=== PATIENT | male | born 1965 | race Caucasian/White ===

== ENCOUNTER 2016-08-28 08:45 | Emergency (ER) | payer BC, OTHER ==
[2016-08-28 09:07] VITALS: BP 134/80
--- NOTE | 2016-08-28 09:57 | UC ---
Abdominal Pain Male HPI - HPI Summary HPI Summary: SUDDEN ONSET OF INTERMITTENT SHARP LOWER ABDOMINAL PAIN. SOME NAUSEA WHEN EATING SINCE YESTERDAY. NO FEVER. FEELS BLOATED. NO URINARY SX. SX WORSE WHEN HE NEEDS TO DEFECATE AND THEN HE IS UNABLE TO GET MUCH OUT. HAS HAD APPENDECTOMY. NO BLOOD PER RECTUM. - History of Current Complaint Chief Complaint: UCAbdominalPain Stated Complaint: CONSTIPATION Time Seen by Provider: 08/28/16 09:24 Hx Obtained From: Patient Onset/Duration: Sudden Onset, Lasting Days, Still Present Timing: Intermittent Episodes Lasting: Severity Initially: Moderate Severity Currently: Moderate Pain Intensity: 3 Pain Scale Used: 0-10 Numeric Location: Suprapubic Radiates: No Character: Sharp Aggravating Factor(s):: Nothing Alleviating Factor(s): Spontaneous Resolution Associated Signs And Symptoms: Positive: Constipation, Decreased Appetite, Nausea. Negative: Fever, Vomiting, Diarrhea - Allergies/Home Medications Allergies/Adverse Reactions: Allergies Allergy/AdvReac Type Severity Reaction Status Date / Time Diphenhydramine Allergy Intermediate Agitation Verified 10/20/12 04:26 [From Benadryl] PMH/Surg Hx/FS Hx/Imm Hx Endocrine History Of: Denies: Diabetes Cardiovascular History Of: Denies: Hypertension, Pacemaker/ICD GI/ History Of: Reports: Gastroesophageal Reflux Denies: Renal Disease - Surgical History Surgical History: Yes Surgery Procedure, Year, and Place: APPENDECTOMY- as a child. TENDONS REPAIR - FROM INJURY - Lt HAND - Family History Known Family History: Positive: Cardiac Disease Negative: Blood Disorder Family History: COLITIS - MOM - Social History Alcohol Use: None Substance Use Type: None, Other Smoking Status (MU): Former Smoker Review of Systems Constitutional: Negative Respiratory: Negative Cardiovascular: Negative Gastrointestinal: Abdominal Pain, Other - NAUSEA Genitourinary: Negative All Other Systems Reviewed And Are Negative: Yes Physical Exam Triage Information Reviewed: Yes Appearance: Well-Appearing, No Pain Distress, Well-Nourished Vital Signs: Initial Vital Signs Temp 99.3 F 08/28/16 09:00 Pulse 81 08/28/16 09:00 Resp 18 08/28/16 09:00 BP 134/80 08/28/16 09:00 Pulse Ox 96 08/28/16 09:00 Vital Signs Reviewed: Yes Eyes: Positive: Conjunctiva Clear ENT: Positive: Hearing grossly normal Neck: Positive: Supple, Nontender, No Lymphadenopathy Respiratory Exam: Normal Cardiovascular Exam: Normal Abdomen Description: Positive: Soft, Distended, Other: - TTP SUPRAPUBIC, NO REBOUND OR RIGIDITY. SOME VOLUNTARY GUARDING. Negative: CVA Tenderness (R), CVA Tenderness (L) Bowel Sounds: Positive: Present Musculoskeletal: Positive: No Edema Neurological: Positive: Alert Psychological: Positive: Age Appropriate Behavior Skin: Negative: rashes Diagnostics - Radiology CT ABD/PELVIS W/O CONTRAST Xray Interpretation: Positive (See Comments) - FINDINGS SUGGESTIVE OF DIVERTICULITIS. POSSIBLE ABSCESS OFF SIGMOID COLON. Radiology Interpretation Completed By: Radiologist Abd Pain Male Course/Dx - Differential Dx/Clinical Impression Provider Diagnoses: DIVERTICULITIS, POSSIBLE ABSCESS - Physician Notification/Consults Discussed Patient Care With: DR. LYON Time Discussed With Above Provider: 11:00 - OFFICE TO CALL PT TO SCHEDULE APPT Instructed by Provider To: Other - DR. LYON WILL SEE PT IN OFFICE TOMORROW MORNING. Discharge - Discharge Plan Condition: Stable Disposition: HOME Prescriptions: Ciprofloxacin TAB* [Cipro Tab*] 500 mg PO BID #20 tab Metronidazole [Flagyl 500 MG TAB] 500 mg PO TID #30 tab Ondansetron ODT TAB* [Zofran Odt TAB*] 4 mg PO Q6H PRN #20 tab.odt PRN Reason: Nausea/Vomiting Patient Education Materials: Diverticulitis (ED), Diverticulitis Diet (ED) Referrals: Anand Lyon MD [Primary Care Provider] - Additional Instructions: DIVERTICULITIS AND POSSIBLE ABSCESS SEEN ON NON CONTRAST CT SCAN TODAY. DR LYON' S OFFICE WILL BE CALLING YOU TODAY TO SCHEDULE AN APPT WITH HIM TOMORROW MORNING. GO TO THE ER WITHOUT FAIL IF YOU DEVELOP WORSENING PAIN, FEVER, VOMITING, BLOOD PER RECTUM OR ANY OTHER CONCERNING SYMPTOMS.
--- NOTE | 2016-08-28 10:36 | RAD ---
INDICATION: Lower abdominal pain. COMPARISON: There are no prior studies available for comparison. TECHNIQUE: A CT scan of the abdomen and pelvis was performed without intravenous or oral contrast. Contiguous axial sections were obtained from the lung bases through the symphysis pubis. Images were reconstructed in the coronal and sagittal planes. FINDINGS: The lung bases are clear. No pleural effusion is present. The liver is mildly enlarged and decreased in attenuation consistent with fatty infiltration. The spleen is normal in size. There are multiple splenic calcifications most consistent with old granulomatous disease. No calcified gallstones are seen. The pancreas appears to be within normal limits. The adrenal glands and kidneys are normal in size. No renal calculi or hydronephrosis is seen. The aorta is normal in caliber with mild calcific plaque present. No significant enlarged retroperitoneal lymph nodes are seen. The stomach, small and large bowel appear nondistended. The patient is status post appendectomy. There is enlargement of the mid sigmoid colon with wall thickening and increased density. There is stranding in the adjacent mesenteric fat. There is also a more rounded area extending off the top of the sigmoid colon measuring 3.5 cm in diameter possibly representing an abscess although not well-defined on this noncontrast study. This has a low-density center. There is a trace amount of free intraperitoneal fluid seen in the pelvis. No free to peritoneal air is seen. No significant focal osseous abnormality is seen. IMPRESSION: 1. INCREASED SOFT TISSUE DENSITY IN THE SIGMOID COLON WITH WALL THICKENING AND STRANDING IN THE ADJACENT MESENTERIC FAT NONSPECIFIC ALTHOUGH SUGGESTIVE OF DIVERTICULITIS. THERE IS ALSO A ROUND AREA PRESENT ARISING FROM THE SUPERIOR ASPECT OF THE SIGMOID COLON POSSIBLY REPRESENTING AN ABSCESS. RECOMMEND COLONOSCOPY ONCE THE PATIENT'S ACUTE SYMPTOMS RESOLVE TO EXCLUDE AN UNDERLYING MALIGNANCY. 2. MILD HEPATOMEGALY AND HEPATIC STEATOSIS.
== END 2016-08-28 11:23 | disposition home or self-care (01) ==
LOC: UCEAST 08:45
DX: K57.32 Diverticulitis of large intestine without perforation or abscess without bleeding (principal); Z88.8 Allergy status to other drugs, medicaments and biological substances; Z87.891 Personal history of nicotine dependence
CPT/HCPCS: 74176; 81002; 87086; 99212; G0463

== ENCOUNTER 2017-03-31 12:53 | Emergency (ER) | payer SELFPAY ==
[2017-03-31 13:09] VITALS: BP 131/67
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
== END 2017-03-31 15:30 | disposition home or self-care (01) ==
LOC: UCEAST 12:53
DX: M25.511 Pain in right shoulder (principal); V49.49XA Driver injured in collision with other motor vehicles in traffic accident, initial encounter; Y92.410 Unspecified street and highway as the place of occurrence of the external cause; Y99.9 Unspecified external cause status
CPT/HCPCS: 99213; G0463

== ENCOUNTER 2018-10-27 12:28 | Emergency (ER) | payer BC, OTHER ==
[2018-10-27 13:44] VITALS: BP 117/78
--- NOTE | 2018-10-27 15:03 | UC ---
Bite Injury/Animal HPI - HPI Summary HPI Summary: 53-year-old male with a chief complaint of a tick bite in a rash. This morning he found a tick just below his umbilicus. He pulled off. Now he has erythema in the area and it continues to hurt. No fevers or chills feels well otherwise. Patient works outside a lot and has a lot of exposure to ticks. Is also interested in a hepatitis screen. He is not any hepatitis symptoms. - History of Current Complaint Chief Complaint: UCGeneralIllness Stated Complaint: TICK BITE Time Seen by Provider: 10/27/18 14:51 Pain Intensity: 0 - Allergies/Home Medications Allergies/Adverse Reactions: Allergies Allergy/AdvReac Type Severity Reaction Status Date / Time MS Diphenhydramine Allergy Intermediate Agitation Verified 10/27/18 13:37 [From Benadryl] PMH/Surg Hx/FS Hx/Imm Hx Previously Healthy: Yes - Surgical History Surgical History: Yes Surgery Procedure, Year, and Place: APPENDECTOMY- as a child. TENDONS REPAIR - FROM INJURY - Lt HAND - Family History Known Family History: Positive: None, Cardiac Disease Negative: Blood Disorder Family History: COLITIS - MOM - Social History Alcohol Use: None Substance Use Type: None Smoking Status (MU): Former Smoker - Immunization History Most Recent Tetanus Shot: UTD Review of Systems All Other Systems Reviewed And Are Negative: Yes Constitutional: Positive: Negative Skin: Positive: Rash Eyes: Positive: Negative ENT: Positive: Negative Respiratory: Positive: Negative Cardiovascular: Positive: Negative Gastrointestinal: Positive: Negative Motor: Positive: Negative Neurovascular: Positive: Negative Musculoskeletal: Positive: Negative Neurological: Positive: Negative Psychological: Positive: Negative Is Patient Immunocompromised?: No Physical Exam Triage Information Reviewed: Yes Appearance: Well-Appearing, No Pain Distress, Well-Nourished Vital Signs: Initial Vital Signs Temp 97.9 F 10/27/18 13:40 Pulse 70 10/27/18 13:40 Resp 17 10/27/18 13:40 BP 117/78 10/27/18 13:40 Pulse Ox 99 10/27/18 13:40 Vital Signs Reviewed: Yes Eye Exam: Normal Eyes: Positive: Conjunctiva Clear Neck: Positive: Supple Respiratory: Positive: Lungs clear, Normal breath sounds, No respiratory distress Cardiovascular: Positive: RRR Musculoskeletal Exam: Normal Musculoskeletal: Positive: Strength Intact, ROM Intact Neurological Exam: Normal Neurological: Positive: Alert, Muscle Tone Normal Psychological Exam: Normal Psychological: Positive: Age Appropriate Behavior Skin: Positive: Other - Just below the umbilicus there is a 3cm diameter area of skin erythema that is warm to the touch. Bite Injury Course/Dx - Course Course Of Treatment: The erythematous area around the tick bite site is concerning for a Lyme rash or cellulitis. We will treat with doxycycline 100 mg by mouth twice a day for 14 days. Patient is also negative hepatitis screen. Follow-up primary care reevaluate sooner if worse or any questions or concerns. - Differential Dx/Diagnosis Provider Diagnosis: Tick bite of abdomen, Cellulitis Discharge - Sign-Out/Discharge Documenting (check all that apply): Patient Departure All imaging exams completed and their final reports reviewed: No Studies - Discharge Plan Condition: Stable Disposition: HOME Prescriptions: DOXYcycline CAP(*) [DOXYcycline 100MG CAP(*)] 100 mg PO BID #28 cap Patient Education Materials: Cellulitis (ED), Tick Bite (ED) Referrals: Anand Lyon MD [Primary Care Provider] - Additional Instructions: FOLLOW UP WITH YOUR DOCTOR IF NOT COMPLETELY IMPROVED. GET REEVALUATED SOONER FOR ANY WORSENING OF YOUR CONDITION OR ANY QUESTIONS OR CONCERNS. - Billing Disposition and Condition Condition: STABLE Disposition: Home
[2018-10-28 11:55] LABS: Hepatitis B Surface Antigen Nonreactive (Nonreactive)
[2018-10-28 12:13] LABS: Hepatitis C Antibody Nonreactive (Nonreactive)
== END 2018-10-27 15:20 | disposition home or self-care (01) ==
LOC: UCEAST 12:28
DX: Z87.891 Personal history of nicotine dependence (principal); T63.481A Toxic effect of venom of other arthropod, accidental (unintentional), initial encounter; Y92.9 Unspecified place or not applicable; L03.311 Cellulitis of abdominal wall
CPT/HCPCS: 36415; 80074; 99212; G0463

== ENCOUNTER 2019-09-05 09:47 | Emergency (ER) | payer BC ==
[2019-09-05 10:37] LABS: ABS Basophils 0.1 10^3/ul (0-0.2); ABS Monocytes 1.1 10^3/ul (0-0.8); ABS Neutrophils 9.7 10^3/ul (1.5-7.7); Eosinophil % 0.4 %; Hematocrit 43 % (42-52); Hemoglobin 14.5 g/dL (14.0-18.0); Lymphocyte % 8.3 %; Mean Corpuscular HGB Conc 34 g/dL (31-36); Mean Corpuscular Hemoglobin 31 pg (27-31); Mean Corpuscular Volume 92 fL (80-94); Mean Platelet Volume 7.2 fL (7.4-10.4); Platelet Count 269 10^3/uL (150-450); Red Blood Count 4.67 10^6 /uL (4.18-5.48); Red Cell Distribution Width 13 % (10-15); White Blood Count 11.9 10^3/uL (3.5-10.8)
[2019-09-05 10:47] LABS: Albumin 4.2 g/dL (3.2-5.2); Calcium 9.4 mg/dL (8.6-10.3); Potassium 4.3 mmol/L (3.5-5.0); Total Bilirubin 0.7 mg/dL (0.2-1.0)
[2019-09-05 10:53] LABS: Albumin/Globulin Ratio 1.3 (1-3); BUN/Creatinine Ratio 11.3 (8-20); EGFR African American 97.2 (>60); EGFR Non-African American 80.4 (>60); Globulin 3.2 g/dL (2-4); Total Protein 7.4 g/dL (6.4-8.9)
--- NOTE | 2019-09-05 11:32 | ED ---
Abdominal Pain/Male - HPI Summary HPI Summary: 54 y/o male presented to [facility] complaining of lower abd pain worsened since yesterday. Pt had abd pain 2 weeks ago when he had the flu that improved after flu symptoms ended, and worsened yesterday. Pt denies diarrhea but endorses a fever of 101F. His last BM was this morning, but he is constipated and needed laxatives. He recently received a colonoscopy from Dr. Mejia. Medications reviewed. Pt notes hx of diverticulitis. Notes fhx of diverticulitis, colitis, and hernias in his mother as well as triple bypass and pancreatic cx in his father. - History of Current Complaint Chief Complaint: EDAbdPain Stated Complaint: ABD PAIN PER PT Time Seen by Provider: 09/05/19 10:24 Hx Obtained From: Patient Onset/Duration: Lasting Days, Still Present Timing: Lasting Days Severity Currently: Moderate Pain Intensity: 6 Pain Scale Used: 0-10 Numeric Location: Discrete At: RLQ, Discrete At: LLQ Aggravating Factor(s): Nothing Alleviating Factor(s): Nothing Associated Signs And Symptoms: Positive: Fever, Constipation. Negative: Diarrhea - Allergies/Home Medications Allergies/Adverse Reactions: Allergies Allergy/AdvReac Type Severity Reaction Status Date / Time diphenhydramine Allergy Tachycardia Verified 09/05/19 09:52 [From Benadryl] Home Medications: Home Medications Polyethylene Glycol 3350 [Miralax] 17 gm PO DAILY PRN 09/05/19 [History Confirmed 09/05/19] PMH/Surg Hx/FS Hx/Imm Hx Endocrine/Hematology History: Denies: Hx Diabetes, Hx Thyroid Disease Cardiovascular History: Denies: Hx Hypertension, Hx Pacemaker/ICD Respiratory History: Denies: Hx Asthma, Hx Chronic Obstructive Pulmonary Disease (COPD) GI History: Denies: Hx Ulcer History: Denies: Hx Renal Disease Sensory History: Denies: Hx Hearing Aid Neurological History: Denies: Hx Headaches, Other Neuro Impairments/Disorders Psychiatric History: Denies: Hx Panic Disorder - Surgical History Surgery Procedure, Year, and Place: APPENDECTOMY- as a child. TENDONS REPAIR - FROM INJURY - Lt HAND Infectious Disease History: No Infectious Disease History: Denies: Hx Hepatitis, Hx Human Immunodeficiency Virus (HIV), Traveled Outside the [place] in Last 30 Days - Family History Known Family History: Positive: Cardiac Disease Negative: Blood Disorder Family History: COLITIS - MOM - Social History Alcohol Use: None Substance Use Type: Reports: Marijuana Substance Use Comment - Amount & Last Used: last used a few weeks ago, states occasional use Smoking Status (MU): Former Smoker Review of Systems Positive: Fever - claimed before arrival Positive: Abdominal Pain, Other - constipation. Negative: Diarrhea All Other Systems Reviewed And Are Negative: Yes Physical Exam - Summary Physical Exam Summary: Constitutional: Well-developed, Well-nourished, Alert. (-) Distressed Skin: Warm, Dry HENT: Normocephalic; Atraumatic Eyes: Conjunctiva normal Neck: Musculoskeletal ROM normal neck. (-) JVD, (-) Stridor, (-) Nuchal rigidity Cardio: Rhythm regular, rate normal, Heart sounds normal; Intact distal pulses; Radial pulses are 2+ and symmetric. (-) Murmur Pulmonary/Chest wall: Effort normal. (-) Respiratory distress, (-) Wheezes, (-) Rales Abd: Soft, (-) Suprapubic bilat LQ tenderness, (-) Distension, (-) Guarding, (- ) Rebound Musculoskeletal: (-) Edema Lymph: (-) Cervical adenopathy Neuro: Alert, Oriented x3 Psych: Mood and affect Normal Triage Information Reviewed: Yes Vital Signs On Initial Exam: Initial Vitals Temp Pulse Resp BP Pulse Ox 99.5 F 95 19 155/87 100 09/05/19 09:49 09/05/19 09:49 09/05/19 09:49 09/05/19 09:49 09/05/19 09:49 Vital Signs Reviewed: Yes Procedures - Sedation Patient Received Moderate/Deep Sedation with Procedure: No Diagnostics - Vital Signs Vital Signs Temp Pulse Resp BP Pulse Ox 09/05/19 11:00 80 95 09/05/19 10:40 88 145/86 98 09/05/19 10:38 85 97 09/05/19 09:49 99.5 F 95 19 155/87 100 - Laboratory Lab Results: Lab Results 09/05/19 09/05/19 Range/Units 10:29 10:29 WBC 11.9 H (3.5-10.8) 10^3/uL RBC 4.67 (4.18-5.48) 10^6 /uL Hgb 14.5 (14.0-18.0) g/dL Hct 43 (42-52) % MCV 92 (80-94) fL MCH 31 (27-31) pg MCHC 34 (31-36) g/dL RDW 13 (10-15) % Plt Count 269 (150-450) 10^3/uL MPV 7.2 L (7.4-10.4) fL Neut % (Auto) 81.0 % Lymph % (Auto) 8.3 % Mcculloch % (Auto) 9.4 % Eos % (Auto) 0.4 % Baso % (Auto) 0.9 % Absolute Neuts (auto) 9.7 H (1.5-7.7) 10^3/ul Absolute Lymphs (auto) 1.0 (1.0-4.8) 10^3/ul Absolute Monos (auto) 1.1 H (0-0.8) 10^3/ul Absolute Eos (auto) 0.0 (0-0.6) 10^3/ul Absolute Basos (auto) 0.1 (0-0.2) 10^3/ul Absolute Nucleated RBC 0.0 10^3/ul Nucleated RBC % 0.0 Sodium 135 (135-145) mmol/L Potassium 4.3 (3.5-5.0) mmol/L Chloride 99 L (101-111) mmol/L Carbon Dioxide 30 (22-32) mmol/L Anion Gap 6 (2-11) mmol/L BUN 11 (6-24) mg/dL Creatinine 0.97 (0.67-1.17) mg/dL Est GFR ( Amer) 97.2 (>60) Est GFR (Non-Af Amer) 80.4 (>60) BUN/Creatinine Ratio 11.3 (8-20) Glucose 108 H (70-100) mg/dL Calcium 9.4 (8.6-10.3) mg/dL Total Bilirubin 0.70 (0.2-1.0) mg/dL AST 14 (13-39) U/L ALT 12 (7-52) U/L Alkaline Phosphatase 70 (34-104) U/L Total Protein 7.4 (6.4-8.9) g/dL Albumin 4.2 (3.2-5.2) g/dL Globulin 3.2 (2-4) g/dL Albumin/Globulin Ratio 1.3 (1-3) Lipase 14 (11.0-82.0) U/L Result Diagrams: 09/05/19 10:29 09/05/19 10:29 Lab Statement: Any lab studies that have been ordered have been reviewed, and results considered in the medical decision making process. - CT abd/pel CT Interpretation Completed By: Radiologist Summary of CT Findings: IMPRESSION: Findings consistent with diverticulitis of the sigmoid colon with no evidence. of peridiverticular abscess. Tiny microperforations may be present. The ED physician has reviewed this report. Re-Evaluation - Re-Evaluation First Eval Re-Evaluation Time: 14:40 Change: Improved - d/w patient finding of diverticulitis on CT, given augmentin. Has GI doctor for follow up Abdominal Pain Male Course/Dx - Course Course Of Treatment: 54-year-old male with a history of recent flulike symptoms presenting with lower abdominal pain consistent with prior diverticulitis. Physical exam well-appearing, mild lower abdominal tenderness. Urine without evidence of UTI. Will check CT abd and pelvis contrast, give IV fluids. Labs notable for mild leukocytosis. - Diagnoses Provider Diagnoses: Diverticulitis Discharge ED - Sign-Out/Discharge Documenting (check all that apply): Patient Departure - dc - Discharge Plan Condition: Stable Disposition: HOME Prescriptions: Amoxicillin/Clavulanate TAB* [Augmentin TAB 875*] 875 mg PO BID 10 Days #20 tab Patient Education Materials: Diverticulitis (ED) Referrals: Simon Tripathi, [place] [Primary Care Provider] - Harry Mariscal DO [Doctor of Osteopathy] - Additional Instructions: You were seen in the emergency department for dollar pain. Your CT scan showed diverticulitis Please take Augmentin twice a day for 10 days. If any studies were not completed at the time of discharge you will be called with the relevant results. Please follow up with your primary care doctor in the next 2-3 days and return to the emergency department for worsening pain, fevers, inability to eat or drink, or concerning symptoms. It was a pleasure taking care of you today. - Billing Disposition and Condition Condition: STABLE Disposition: Home - Attestation Statements Document Initiated by Scribe: Yes Documenting Scribe: Chester Garnica Provider For Whom Scribe is Documenting (Include Credential): Sandor Carmen Scribe Attestation: I, Chester Garnica, scribed for Sandor Reyesse on 09/05/19 at 2304. Scribe Documentation Reviewed: Yes Provider Attestation: The documentation as recorded by the scribeChester accurately reflects the service I personally performed and the decisions made by Sandor macias Status of Scribe Document: Viewed
[2019-09-05 12:34] LABS: Urine Appearance Clear; Urine Bilirubin Negative (Negative); Urine Blood Negative (Negative); Urine Color Colorless; Urine Glucose Negative (Negative); Urine Ketones Trace (Negative); Urine Nitrite Negative (Negative); Urine Protein Negative (Negative); Urine Specific Gravity 1.001 (1.010-1.030); Urine Urobilinogen Negative (Negative)
[2019-09-05] MEDS ORDERED: NS 0.9% 1000 ML** 1,000 ML IV ONE (12:59)
[2019-09-05] MEDS ORDERED: Iohexol 300* (CONTRAST) 10 ML SDV IV ONE (13:05)
[2019-09-05 15:07] VITALS: BP 149/85
== END 2019-09-05 15:07 | disposition home or self-care (01) ==
LOC: ED 09:47
DX: K57.32 Diverticulitis of large intestine without perforation or abscess without bleeding (principal); R50.9 Fever, unspecified; K59.00 Constipation, unspecified; Z88.8 Allergy status to other drugs, medicaments and biological substances; Z87.891 Personal history of nicotine dependence
CPT/HCPCS: 36415; 74177; 80053; 81003; 83690; 85025; 96360; 96361; 99283; Q9967